=== PATIENT | male | born 1940 | race Caucasian/White ===

== ENCOUNTER 2021-11-26 22:58 | Inpatient (IN) | payer MEDICARE, OTHER ==
[~2021-11-26] VITALS: Ht 173 cm; Wt 75.9 kg
--- NOTE | 2021-11-27 06:00 | NUR ---
PATIENT ARRIVED TO THE FLOOR WITH A UNIT OF BLOOD RUNNING THAT WAS BEGUN IN THE EMERGENCY ROOM AT [facility]. OUR TUBING IS NOT COMPATIBLE WITH THE PUMPS USED AT [facility] OR BY EMS SO THE PLAN WAS TO DISCARD THE UNIT AND OBTAIN A NEW TYPE AND SCREEN AND NEW UNIT OF BLOOD. DR CANTRELL INSTRUCTED ME TO USE NEW TUBING AND THE SAME UNIT OF BLOOD SO NOT TO WASTE THE UNIT. I WAS UNCOMFORTABLE WITH THIS SO I CONTACTED HOUSE, WHO SAID I NEEDED TO OBTAIN THE TIME THE BLOOD WAS STARTED AND BEGINNING VITALS, WHICH WERE LOCATED IN THE CHART. THE UNIT OF BLOOD WAS BEGUN AT 0006 AND FINISHED AT 0350, PT V/S UPON COMPLETION WERE BP 150/83 (98), HR 82, RR 16, O2 96% ON 2L. PT ALSO ARRIVED TO THE FLOOR WITH LARGE BLOOD CLOTS EMERGING FROM HIS PENIS, WHICH WAS REPORTED TO ME BY THE ER NURSE AT [facility] AND WAS REPORTED TO ADMITTING PHYSICIAN. ATTEMPTED TO INSERT A MAURER CATHETER PER DR CANTRELL'S ORDERS BUT WAS UNSUCCESSFUL.
[2021-11-27 07:01] LABS: RED BLOOD COUNT 2.78 M/UL (4.20-5.50)
[2021-11-27] MEDS ORDERED: ASPIRIN CHEWABL81 MG PO (14:41)
[2021-11-27] MEDS ORDERED: ATORVASTATIN CA40 MG PO (14:42)
[2021-11-27] MEDS ORDERED: FAMOTIDINE40 MG PO (14:43)
[2021-11-27] MEDS ORDERED: FINASTERIDE5 MG PO (14:45)
[2021-11-27] MEDS ORDERED: FERROUS SU220 MG/5 M GT (14:45)
[2021-11-27] MEDS ORDERED: FUROSEMIDE40 MG PO (14:46)
[2021-11-27 15:17] LABS: HEMOGLOBIN 7.6 gm/dl (14.0-17.5)
[2021-11-27] MEDS ORDERED: MELATONIN10 M2 GT (16:57)
[2021-11-27] MEDS ORDERED: MIRALAX 119 GR119 GM PEG (16:58)
[2021-11-27] MEDS ORDERED: SENNA-PLUS TAB1 EACH PEG (16:58)
[2021-11-28 04:10] LABS: HEMOGLOBIN 8.1 gm/dl (14.0-17.5); RED BLOOD COUNT 2.8 M/UL (4.20-5.50); WHITE BLOOD COUNT 5.8 K/UL (4.5-11.0)
[2021-11-28] MEDS ORDERED: MILK OF MA400 MG/5 M PO (08:50)
[2021-11-28] MEDS ORDERED: NITROGLYCERIN0.4 MG SL (08:51)
[2021-11-28] MEDS ORDERED: BANOPHEN25 M1 PO (08:55)
[2021-11-28] MEDS ORDERED: CARAFATE1 GM GT (08:57)
[2021-11-28] MEDS ORDERED: CARDIZEM60 MG PEG (08:58)
[2021-11-28] MEDS ORDERED: LOPERAMIDE2 M1 GT (09:03)
[2021-11-28] MEDS ORDERED: NOVOLIN 70100 UNITS/ SQ (09:12)
[2021-11-28] MEDS ORDERED: CARBIDOPA-LEVO1 EA14 PEG (09:14)
[2021-11-28] MEDS ORDERED: SYNTHROID100 MCG PEG (09:15)
[2021-11-28] MEDS ORDERED: TERAZOSIN HCL1 MG PEG (09:16)
[2021-11-28] MEDS ORDERED: ZYRTEC10 MG PEG (09:17)
[2021-11-28] MEDS ORDERED: NOVOLOG 10100 UNITS/ INJ (09:18)
[2021-11-28] MEDS ORDERED: SODIUM BICARBO650 MG PEG (09:20)
[2021-11-28 12:12] LABS: HBSAG SCREEN Negative (Negative); HCV AB <0.1 (0.0-0.9); HEP A AB, IGM Negative (Negative); HEP B CORE AB, IGM Negative (Negative)
[2021-11-29 02:12] LABS: HEMOGLOBIN 7.8 gm/dl (14.0-17.5); RED BLOOD COUNT 2.71 M/UL (4.20-5.50); WHITE BLOOD COUNT 5.2 K/UL (4.5-11.0)
[2021-11-29 02:44] LABS: BUN/CREATININE RATIO 14 (0-10)
[2021-11-30 02:08] LABS: HEMOGLOBIN 8.1 gm/dl (14.0-17.5); RED BLOOD COUNT 2.87 M/UL (4.20-5.50); WHITE BLOOD COUNT 5.6 K/UL (4.5-11.0)
[2021-11-30 02:42] LABS: BUN/CREATININE RATIO 11 (0-10)
[2021-12-01 06:23] LABS: HEMOGLOBIN 8.5 gm/dl (14.0-17.5); RED BLOOD COUNT 2.97 M/UL (4.20-5.50); WHITE BLOOD COUNT 5.3 K/UL (4.5-11.0)
[2021-12-01 06:52] LABS: BUN/CREATININE RATIO 9 (0-10)
--- NOTE | 2021-12-01 15:29 | NUR ---
dr. ewing on the floor and discussed with her about the patient has been sleeping all day today and that pm nurse reported that after giving patient atarax from last night he has been sleeping comfortably. no new order received. patient sleeping comfortably.
[2021-12-02 05:45] LABS: HEMOGLOBIN 8.6 gm/dl (14.0-17.5); RED BLOOD COUNT 3.01 M/UL (4.20-5.50); WHITE BLOOD COUNT 6.1 K/UL (4.5-11.0)
[2021-12-02 06:40] LABS: BUN/CREATININE RATIO 10 (0-10)
[2021-12-03 07:01] LABS: HEMOGLOBIN 8.6 gm/dl (14.0-17.5); WHITE BLOOD COUNT 6.5 K/UL (4.5-11.0)
[2021-12-03 07:33] LABS: BUN/CREATININE RATIO 11 (0-10)
--- NOTE | 2021-12-04 03:37 | NUR ---
UPON CHANGING PATIENTS BRIEF, SMALL AMOUNT OF BLOOD WAS NOTICED IN BRIEF AND AROUND URETHRA OPENING, PATIENT HAS BEEN PULLING AT MAURER CATH AND TRYING TO GET OUT OF BED. WILL CONTINUE TO MONITOR.
[2021-12-04 06:33] LABS: HEMOGLOBIN 8.9 gm/dl (14.0-17.5); RED BLOOD COUNT 3.1 M/UL (4.20-5.50); WHITE BLOOD COUNT 6.7 K/UL (4.5-11.0)
[2021-12-05 06:27] LABS: HEMOGLOBIN 9.1 gm/dl (14.0-17.5); RED BLOOD COUNT 3.18 M/UL (4.20-5.50); WHITE BLOOD COUNT 6.5 K/UL (4.5-11.0)
[2021-12-05 06:55] LABS: BUN/CREATININE RATIO 11 (0-10)
--- NOTE | 2021-12-05 13:36 | NUR ---
REPORT CALLED TO [facility], BARB IS THE RECIEVING NURSE. IV DISCONTINUED, CATHETER TIP IN PLACE, PRESSURE APPLIED WITH GAUZE AND TAPE. MAURER CATHETER CARE COMPLETED, BRIEF CHANGED. AWAITING AMBULANCE FOR TRANSPORT.
== END 2021-12-05 19:15 | disposition home or self-care (01) | DRG 682 ==
LOC: PROG CARE 22:58 → MED SURG 4 11-27 01:59
PROVIDERS: Internal Medicine; Internal Medicine Nephrology; ADMIT Internal Medicine
PROC: 02HV33Z Insertion of Infusion Device into Superior Vena Cava, Percutaneous Approach (ICD-10-PCS; 2021-11-27)
PROC: B548ZZA Ultrasonography of Superior Vena Cava, Guidance (ICD-10-PCS; 2021-11-27)
PROC: 5A1D70Z Performance of Urinary Filtration, Intermittent, Less than 6 Hours Per Day (ICD-10-PCS; 2021-11-27)
PROC: 0DH68UZ Insertion of Feeding Device into Stomach, Via Natural or Artificial Opening Endoscopic (ICD-10-PCS; 2021-11-28)
PROC: 5A1D70Z Performance of Urinary Filtration, Intermittent, Less than 6 Hours Per Day (ICD-10-PCS; 2021-11-28)
PROC: B24BZZZ Ultrasonography of Heart with Aorta (ICD-10-PCS; principal; 2021-11-29)
DX: N17.9 Acute kidney failure, unspecified (principal); G92.8 Other toxic encephalopathy; I21.4 Non-ST elevation (NSTEMI) myocardial infarction; J18.9 Pneumonia, unspecified organism; I13.2 Hypertensive heart and chronic kidney disease with heart failure and with stage 5 chronic kidney disease, or end stage renal disease; E87.1 Hypo-osmolality and hyponatremia; Z66 Do not resuscitate; I25.10 Atherosclerotic heart disease of native coronary artery without angina pectoris; R13.10 Dysphagia, unspecified; E87.5 Hyperkalemia; I50.9 Heart failure, unspecified; N40.1 Benign prostatic hyperplasia with lower urinary tract symptoms; R31.9 Hematuria, unspecified; E03.9 Hypothyroidism, unspecified; G20 Parkinson's disease; D63.1 Anemia in chronic kidney disease; E11.22 Type 2 diabetes mellitus with diabetic chronic kidney disease; I08.3 Combined rheumatic disorders of mitral, aortic and tricuspid valves; K52.9 Noninfective gastroenteritis and colitis, unspecified; N18.6 End stage renal disease; F02.80 Dementia in other diseases classified elsewhere, unspecified severity, without behavioral disturbance, psychotic disturbance, mood disturbance, and anxiety; Z99.2 Dependence on renal dialysis; Z79.4 Long term (current) use of insulin; Z93.1 Gastrostomy status; Z79.01 Long term (current) use of anticoagulants; Z79.82 Long term (current) use of aspirin
CPT/HCPCS: ECHO; 36415; 70450; 71045; 74230; 77001; 80048; 80053; 80074; 81001; 82272; 82550; 82553; 82607; 82728; 82746; 82962; 83540; 83550; 83735; 84439; 84443; 84484; 85014; 85018; 85025; 85027; 87040; 87086; 92526; 92610; 92611-GN; 93306; 93880; 94640; 94664; 94760; C1750; C1769; C9113; J1100; J1200; J1335; J1630; J1642; J2001; J2405; J2704; J7040; U0002